=== PATIENT | male | born 1980 | race Caucasian/White ===

== ENCOUNTER → 2017-06-27 | Outpatient (CLI) | payer BC ==
[2017-06-27] VITALS (27 sets, daily range): BP systolic 73–133; BP diastolic 47–86
--- NOTE | 2017-06-28 17:17 | PROC ---
[address] [address] PROCEDURE REPORT Name: STEFANI CONNOR Room: [facility]#: [id number] Admission: 06/27/17 Attend Phys: Derek Sauceda MD, F Discharge: Date of : 82 Report #: [id number] THIS REPORT FOR: //name// CC: Derek Rajan Alley Jovel DATE OF SERVICE: 06/27/2017 PROCEDURE: Head upright tilt table test. INDICATIONS: Head upright tilt table testing was requested in this patient with a history of syncope. DESCRIPTION OF PROCEDURE: Head upright tilt table testing was performed by obtaining the patient's heart rate and blood pressure supine position. The patient was then placed in the head upright position of the tilt table at 70 degrees for 20 minutes. The patient was then administered nitroglycerin 0.4 mg sublingually. The patient then placed back into the supine position. The patient's cardiac rhythm was monitored throughout the test. RESULTS: The patient had a pretest blood pressure 130/84, pulse 72 and he was in sinus rhythm. Standing blood pressure 126/82 with the pulse 74 and the patient was in sinus rhythm. The patient was then placed in the head upright position at 70 degrees. The patient denied any complaints at this time. Twenty minutes after being in the head upright position, the patient's blood pressure 116/80 with the pulse 76 and he denied any complaints. The patient was then given nitroglycerin 0.4 mg sublingually. Within 5 minutes of receiving nitroglycerin, the patient complained of not feeling well. He then developed sinus tachycardia up to a maximum 136 beats minute at which time, his blood pressure 110/60. This was 5 minutes after the sublingual nitroglycerin. The patient became lightheaded and then became unresponsive. At that time, his blood pressure is only 70/47. On the monitor, the patient developed sinus bradycardia with a 4.2 second pause. The patient was then placed back into the supine position and regained consciousness. After supine, the blood pressure returned to 108/60 with a pulse of 62. Five minutes after in the supine position, the patient has a blood pressure of 104/64 with the pulse of 68. The patient denied any complaints at this time. The test was terminated. IMPRESSION: 1. 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 2. The patient had both a cardioinhibitory and vasodepressor response to head upright tilt table testing and [place] [address] PROCEDURE REPORT Name: STEFANI CONNOR Room: [facility]#: [id number] Admission: 06/27/17 Attend Phys: Derek Sauceda MD, F Discharge: Date of : 82 Report #: [id number] 3. The patient was noted to have a 4.2-second pause during head upright tilt table testing after receiving nitroglycerin. <ELECTRONICALLY SIGNED> By: Derek Sauceda MD, FACC 06/28/17 1717 [id number] Nick Sauceda MD, FAC /nt
== END | disposition home or self-care (01) ==
LOC: M.CL 07:50
DX: R55 Syncope and collapse (principal)

== ENCOUNTER → 2018-08-18 | Outpatient (CLI) | payer BC | LOC: M.ULTRA 08:31 | DX: I10 Essential (primary) hypertension (principal); Z88.8 Allergy status to other drugs, medicaments and biological substances; Z90.5 Acquired absence of kidney; Z85.528 Personal history of other malignant neoplasm of kidney ==

== ENCOUNTER → 2019-01-19 | Outpatient (CLI) | payer BC | LOC: M.RAD 09:31 | DX: K44.9 Diaphragmatic hernia without obstruction or gangrene (principal); K21.9 Gastro-esophageal reflux disease without esophagitis ==